=== PATIENT | female | born 1970 | race Two or more races ===

== ENCOUNTER → 2017-11-22 | Outpatient (CLI) | payer OTHER | END | disposition home or self-care (01) | LOC: RAD 501 09:02 → SONOGRAMA 09:02 | DX: E04.1 Nontoxic single thyroid nodule (principal) ==

== ENCOUNTER 2017-12-07 14:39 | Outpatient (CLI) | payer OTHER ==
[~2017-12-07] VITALS: Ht 157.5 cm; Wt 68.0 kg
== END 2017-12-07 15:00 | disposition home or self-care (01) ==
LOC: OFIC 805 14:39
DX: E04.1 Nontoxic single thyroid nodule (principal); K21.9 Gastro-esophageal reflux disease without esophagitis

== ENCOUNTER 2017-12-16 09:19 | Outpatient (CLI) | payer OTHER | END 2017-12-16 09:25 | disposition home or self-care (01) | LOC: SONOGRAMA 09:19 | DX: E04.1 Nontoxic single thyroid nodule (principal) ==

== ENCOUNTER 2018-01-29 12:59 | Outpatient (CLI) | payer OTHER ==
[~2018-01-29] VITALS: Ht 152.4 cm; Wt 68.0 kg
== END 2018-01-29 13:15 | disposition home or self-care (01) ==
LOC: OFIC 805 12:59
DX: E04.1 Nontoxic single thyroid nodule (principal)